=== PATIENT | male | born 1965 | race Two or more races ===

== ENCOUNTER 2024-04-03 04:48 | Emergency (ER) | payer MEDICAID, SELFPAY ==
[2024-04-03 05:05] VITALS: BP 116/83; PULSE 129; RESP 20; TEMP 36.9; O2SAT 96; BMI 29.7
--- NOTE | 2024-04-03 05:13 | EDRME_ITS ---
Rapid Medical Screening Exam [facility] Arrival date/time: 04/03/24 04:48 58M with no significant PMH presents to ED with 1 day of N/V, gen ab pain/cramping, and non-bloody diarrhea. Patient took a Zofran he had leftover w/o relief. Chief Complaint: Nausea/Vomiting/Diarrhea Vital signs: Vital Signs Temperature 98.5 F 04/03/24 05:05 Pulse Rate 129 H 04/03/24 05:05 Respiratory Rate 20 04/03/24 05:05 Blood Pressure 116/83 04/03/24 05:05 Pulse Oximetry (%) 96 04/03/24 05:05 Oxygen Delivery Method Room Air 04/03/24 05:05
--- NOTE | 2024-04-03 05:56 | EDNOTE_ITS ---
Nausea/Vomit./Diarrhea-RME/HPI General Chief complaint: Nausea/Vomiting/Diarrhea Stated complaint: N/V/D since midnight Time Seen by Provider: 04/03/24 05:54 Arrival date/time: 04/03/24 04:48 Limitations: no limitations RME / HPI RME / HPI Narrative: 04/03/24 04:48 58M with no significant PMH presents to ED with 1 day of N/V, gen ab pain/cramping, and non-bloody diarrhea. Patient took a Zofran he had leftover w /o relief. No known sick contacts, no recent travel, no recent use of antibiotics Related Data Previous Rx's ?Medication ?Instructions ?Recorded ondansetron HCl 4 mg tablet 4 mg PO TID PRN nausea and 04/03/24 vomiting 3 days #7 tabs Allergies Allergy/AdvReac Type Severity Reaction Status Date / Time No Known Allergies Allergy Verified 04/03/24 04:50 Review of Systems Review of Systems Systems Reviewed: All systems reviewed, normal except as documented ED Exam General Limitations: Present no limitations General appearance: Present alert Head Head exam: Present atraumatic Eye Eye exam: Present normal appearance ENT ENT exam: Present normal exam Neck Neck exam: Present normal inspection Chest Chest inspection: Present normal inspection Respiratory Respiratory exam: Present normal lung sounds bilaterally Cardiovascular Cardiovascular exam: Present regular rate and normal rhythm Abdominal Exam Abdominal exam: Present soft and normal bowel sounds Extremities Exam Extremities exam: Present normal inspection Neurological Exam Neurological exam: Present alert, oriented X3 and CN II-XII intact Course Quality Measures none Orders Category Date Time Status CBC Stat Lab 04/03/24 05:50 Completed CMP [Comprehensive Metabolic Panel] Stat Lab 04/03/24 05:50 Completed Drug Screen,Urine Stat Lab 04/03/24 05:13 Ordered Lactate (Lactic Acid) Stat Lab 04/03/24 05:50 Results Lipase Stat Lab 04/03/24 05:50 Completed Procalcitonin Stat Lab 04/03/24 05:50 Completed UA [Urinalysis] Stat Lab 04/03/24 05:13 Ordered Ondansetron Inj [Zofran Inj] Med 04/03/24 06:00 Discontinued 4 mg IV X1 ONE Vital Signs Vital signs: Vital Signs Temperature 98.5 F 04/03/24 05:05 Pulse Rate 129 H 04/03/24 05:05 Respiratory Rate 20 04/03/24 05:05 Blood Pressure 116/83 04/03/24 05:05 Pulse Oximetry (%) 96 04/03/24 05:05 Oxygen Delivery Method Room Air 04/03/24 05:05 Nausea/Vomiting/Diarrhea Patient data External records reviewed:: None Clinical information provided by:: patient Social determinants that could affect healthcare access:: none Patient has the following chronic illnesses:: NA How is presenting disease/condition affected by chronic disease/condition?: no chronic disease Evaluation data The following diagnostics were reviewed and interpreted by me:: lab results Lab and/or radiology exams considered but not ordered:: Unremarkable Interpretation Summary: NA Medications / Prescriptions Medications / Prescriptions considered but not ordered:: NA Medication administrations:: Medication Administration History Discontinued Medications Ondansetron HCl (Ondansetron Inj 2 Mg/Ml Inj 2 Ml) 4 mg IV X1 ONE; Protocol Stop: 04/03/24 06:01 Last Admin: 04/03/24 06:11 Dose: 4 mg Documented By: CB Noted Consultations Consultation(s) initiated? (list below): No Diagnosis Nausea Differential Diagnosis: traveler's diarrhea, food poisoning and gastroenteritis Most likely diagnosis given after review of the tests above:: AGE Admission Indicated Admission indicated?: not indicated Admission Request Was there a request for admission?: No Disposition Plan Disposition Plan: Discharge Discharge Attestation Discharge Attestation: The patient and all family members were given an opportunity to ask questions and understood the discharge instructions. Discharge instructions specifically effects, indications for sooner follow up or return to the emergency department, and the expected course of current diagnosis. Patient condition: Stable Discharge Plan Plan Patient Disposition: HOME (Self Care) Patient condition on transfer: Stable Prescriptions/Referrals Prescriptions/Med Rec: New ondansetron HCl 4 mg tablet 4 mg PO TID PRN (Reason: nausea and vomiting) 3 Days Qty: 7 0RF Referrals: Austin New [Primary Care Provider] - In 1 week Problem List Clinical Impression: Gastroenteritis Patient/Caregiver Discharge Instructions Discharge Activity: activity as tolerated Education Materials: ED Gastroenteritis, Noninfectious Print Language: Bulgarian Stand Alone Forms: Jennifer Award Info., Patient Portal Info Letter
[2024-04-03 06:06] LABS: Lactate (Lactic Acid) 3.4 mMol/L (0.4-2.0)
[2024-04-03 06:08] LABS: Basophils % (Auto) 0 % (0-2.5); Eosinophils # (Auto) 0.2 Thou/mm3 (0.0-0.5); Eosinophils % (Auto) 3 % (0-10); Hematocrit 49.7 % (41.0-53.0); Immature Granulocytes % (Auto) 0 % (0-0); Immature Granulocytes Auto 0.03 Thou/mm3 (0.00-0.00); Lymphocytes # (Auto) 1.1 Thou/mm3 (1.0-4.8); Lymphocytes % (Auto) 15 % (10-50); Mean Corpuscular HGB Conc 36.2 g/dl (31.0-37.0); Mean Corpuscular Hemoglobin 31.2 pg (25.0-35.0); Mean Corpuscular Volume 86 fL (80-100); Monocytes # (Auto) 0.3 Thou/mm3 (0.0-0.8); Monocytes % (Auto) 4 % (0-12); Neutrophils % (Auto) 78 % (37-80); Nucleated Red Blood Cell % 0 /100 WBC (0); Platelet Count 277 Thou/mm3 (140-440); RDW Standard Deviation 37.8 fL (35.1-43.9); Red Blood Count 5.77 Miln/mm3 (4.50-5.90); White Blood Count 7.6 Thou/mm3 (3.8-10.6)
[2024-04-03] MEDS: ONDANSETRON INJ 2 MG/ML INJ 2 ML 4 MG IV (06:11)
[2024-04-03 06:38] LABS: Alanine Aminotransferase 32 U/L (10-49); Albumin, Serum 5.3 gm/dL (3.5-5.0); Albumin/Globulin Ratio 1.6 (1.2-2.2); Alkaline Phosphatase 96 U/L (46-116); Anion Gap 13 (7-16); Aspartate Amino Transferase 27 U/L (0-34); BUN/Creatinine Ratio 11 Ratio (12-20); Bilirubin,Total 1.1 mg/dL (0.3-1.2); Blood Urea Nitrogen 16 mg/dL (9-23); Calcium 10.8 mg/dL (8.3-10.6); Calcium (Corrected) 10.8 mg/dL (8.5-10.1); Carbon Dioxide 23.8 mMol/L (20.0-31.0); Chloride 97 mMol/L (98-107); Creatinine (Component) 1.4 mg/dL (0.6-1.3); Estimated Creatinine Clearance 59.6 mL/min (>60); Globulin 3.3 gm/dL (2.3-3.5); Glucose 259 mg/dL (74-106); Lipase 38 U/L (12-53); Osmolality,Calculated 278 (275-295); Potassium 3.1 mMol/L (3.4-5.1); Procalcitonin 0.05 ng/ml (0.0-0.49); Sodium 134 mMol/L (136-145); Total Protein 8.6 gm/dL (5.7-8.2); eGFR 58 See Note
[2024-04-03 06:57] VITALS: BP 148/82; PULSE 111; RESP 20; TEMP 37.2; O2SAT 95
[2024-04-03 09:05] LABS: Reflex Lactate? Y
== END 2024-04-03 06:58 | disposition home or self-care (01) ==
PROVIDERS: Physician Assistant; Emergency Provider Emergency Medicine; PCP Physician Assistant
DX: K52.9 Noninfective gastroenteritis and colitis, unspecified (principal)
CPT/HCPCS: 36415; 80053; 80307; 81001; 83605; 83690; 84145; 85025; 96374; 99284; J2405